=== PATIENT | male | born 1960 | race Caucasian/White ===

== ENCOUNTER 2019-09-15 09:23 | Outpatient (CLI) | payer MEDICAID, SELFPAY ==
--- NOTE | 2019-09-15 | US_ITS ---
WS: [id number] ULTRASOUND ABDOMEN LIMITED CLINICAL INFORMATION: HEPATIC LESION COMPARISON: None. FINDINGS: Liver Size: Upper limits of normal Craniocaudal length: 17.1 cm. Echogenicity: Normal. Surface nodularity: None. Mass (size and location): Simple right hepatic cyst measuring1.0 x 0.8 x 0.9 cm Bile ducts Intrahepatic ducts: Normal. Common bile duct diameter: 2.1 cm. Gallbladder Normal. Gallstones: None. Gallbladder sludge: None. Gallbladder wall thickening: None. Pericholecystic fluid: None. Sonographic Melo sign: Absent. Pancreas Normal as visualized. Right kidney: Normal. Hydronephrosis: None. Size: 11.5 cm x 5.1 cm x 4.8 cm. Abdominal aorta and IVC Visualized portions are normal. Ascites: None. US/US liver [id number] IMPRESSION: 1. Simple right hepatic cyst measuring 1.0 x 0.8 x 0.9 cm. 2. Liver is otherwise normal in appearance. 3. Normal gallbladder. 4. No hydronephrosis in right kidney.
== END 2019-09-15 09:24 | disposition home or self-care (01) ==
LOC: RADOUTREAD 13:15
PROVIDERS: Family Provider Family Medicine; Visit Provider Nurse Practitioner Family
DX: K76.9 Liver disease, unspecified (principal); K76.89 Other specified diseases of liver
CPT/HCPCS: 76705

== ENCOUNTER → 2021-04-21 11:10 | Outpatient (BNVA) | payer MEDICAID, SELFPAY | PROVIDERS: Family Provider Family Medicine; Visit Provider Podiatrist Foot & Ankle Surgery | DX: S92.352A Displaced fracture of fifth metatarsal bone, left foot, initial encounter for closed fracture (principal); X58.XXXA Exposure to other specified factors, initial encounter | CPT/HCPCS: 73630 ==

== ENCOUNTER → 2021-10-26 08:27 | Outpatient (BNVA) | payer MEDICAID, SELFPAY | PROVIDERS: Family Provider Family Medicine; PCP Family Medicine; Visit Provider Orthopaedic Surgery | DX: X50.9XXA Other and unspecified overexertion or strenuous movements or postures, initial encounter; S46.211A Strain of muscle, fascia and tendon of other parts of biceps, right arm, initial encounter | CPT/HCPCS: 99203 ==